=== PATIENT | male | born 1925 | race Two or more races ===

== ENCOUNTER 2016-09-12 11:52 | Emergency (ER) | payer MEDICAID ==
[~2016-09-12] VITALS: Ht 170.2 cm; Wt 68.0 kg
[~2016-09-12 11:52] MED LIST: AMLO10TA2; ASPI81CH43; BENA20TA; FINA5TAB4; METO50TA7; OMEP20TA44; PAXIL; SIMV20TA90; TAM04C
[2016-09-12 13:32] LABS: Basophils # (auto) 0 uL; Basophils % (auto) 0.3 % (0.0-2.0); Eosinophils # (auto) 0.1 uL; Eosinophils % (auto) 1.3 % (0.0-7.0); Hemoglobin 12.1 g/dL (13.5-17.5); Lymphocytes # (auto) 0.9 uL; Lymphocytes % (auto) 15.6 % (10.0-50.0); Mean Corpuscular Hgb Conc. 33.7 g/dL (32.0-36.0); Mean Platelet Volume 8.5 fL (7.4-10.4); Monocytes # (auto) 0.4 uL; Monocytes % (auto) 6.6 % (0.0-12.0); Neutrophils # (auto) 4.4 uL; Neutrophils % (auto) 76.2 % (37.0-80.0); Platelet Count (auto) 231 10^3/uL (140-450); White Blood Cell 5.8 10^3/uL (4.4-10.8)
[2016-09-12 13:58] LABS: Albumin 3.9 g/dL (3.4-5.0); BUN/Creatinine Ratio 17.3; Bilirubin, Total 0.6 mg/dL (0.2-1.0); Calcium 8.9 mg/dL (8.5-10.1); Potassium 4.3 mmol/L (3.5-5.1); Total Protein 7.1 g/dL (6.4-8.2)
[2016-09-12 21:34] LABS: INR 1.04 (0.9-1.15); Partial Thromboplastin Time 28.1 sec (22.64-33.71); Prothrombin Time 10.7 sec (9.37-12.3)
[2016-09-12 21:47] LABS: B-Type Natriuretic Peptide 107.57 pg/mL (0-100)
[2016-09-12 21:48] LABS: Temperature: 21.9 C (20.0-25.0)
[2016-09-12 22:36] VITALS: BP 181/74
== END 2016-09-13 00:21 | disposition home or self-care (01) ==
LOC: EDBD 11:52 → ER 11:56
DX: S16.1XXA Strain of muscle, fascia and tendon at neck level, initial encounter (principal); E86.0 Dehydration; R55 Syncope and collapse; K21.9 Gastro-esophageal reflux disease without esophagitis; E78.5 Hyperlipidemia, unspecified; I10 Essential (primary) hypertension; Z98.890 Other specified postprocedural states; X58.XXXA Exposure to other specified factors, initial encounter; Z88.0 Allergy status to penicillin; Y93.89 Activity, other specified; Y99.8 Other external cause status; Y92.89 Other specified places as the place of occurrence of the external cause
CPT/HCPCS: 36415; 70450; 71010; 72125; 80053; 83880; 84484; 85025; 85049; 85610; 85730; 93005